=== PATIENT | male | born 1995 | race Caucasian/White ===

== ENCOUNTER → 2021-03-16 01:14 | Outpatient (CLI) | payer OTHER, SELFPAY ==
[2021-03-16 18:55] LABS: SARS-CoV-2 RNA PCR Negative
== END ==
PROVIDERS: PCP Internal Medicine; Visit Provider Internal Medicine Gastroenterology
DX: Z01.812 Encounter for preprocedural laboratory examination (principal); Z20.822 Contact with and (suspected) exposure to COVID-19
CPT/HCPCS: C9803; U0003; U0005

== ENCOUNTER 2021-03-19 05:32 | Day surgery (SDC) | payer OTHER, SELFPAY ==
[2021-03-08 15:55] VITALS: BMI 38.5
[2021-03-19 07:23] VITALS: BP 144/90; PULSE 72; RESP 18; TEMP 36.2; O2SAT 96; BMI 38.8
[2021-03-19] MEDS: LACTATED RINGERS 1,000 ML 150 ML IV CONT (07:28)
--- NOTE | 2021-03-19 08:16 | WPDANESEPPF ---
Anes - Initial Pre Proc Eval Procedure: Operation Date: 03/19/21 08:30 Proposed Procedures p Colonoscopy - Luc Lang MD Date/Time: 03/19/21 08:16 Surgeon: Luc Lang MD Pre Op Diagnosis: blood in stool, diarrhea Patient Data Age: 25 Gender: M Height: 6 ft Weight: 129.9 kg Last Vital Signs Temp 97.2 F L 03/19/21 07:23 Pulse 72 03/19/21 07:23 Resp 18 03/19/21 07:23 BP 144/90 H 03/19/21 07:23 Pulse Ox 96 03/19/21 07:23 Allergies Allergy/AdvReac Type Severity Reaction Status Date / Time poison magy extract Allergy Unknown Hives Verified 03/19/21 07:19 hydrochlorothiazide AdvReac Severe Drowsy Verified 03/19/21 07:19 triamterene AdvReac Severe Drowsy Verified 03/19/21 07:19 Home Medications Medication Instructions Recorded Confirmed Type ergocalciferol (vitamin D2) 1,250 1,250 mcg PO WEEKLY 90 Days #13 cap 11/12/20 03/08/21 Rx mcg (50,000 unit) capsule febuxostat 80 mg tablet 80 mg PO DAILY 90 Days #90 tablet 11/12/20 03/08/21 Rx lamotrigine 150 mg tablet 300 mg PO QPM #180 tablet 01/11/21 03/08/21 Rx indomethacin 75 mg PO BID PRN 03/08/21 03/08/21 History Patient hx anesthesia problems: none Family hx anesthesia problems: none PMFSH Past Medical History Medical History (Updated 01/13/21 @ 14:34 by Luc Lang MD) Blood in stool Chronic diarrhea Rectal pressure Severe obesity (BMI 35.0-39.9) with comorbidity Family History Family History Other Cerebrovascular accident Diabetes mellitus Family history of cardiovascular disease Family history of chronic obstructive pulmonary disease Hypertension Social History Social History Smoking status: Never smoker Alcohol intake: never Living arrangements: with friend(s) Gender identity (if verbalized by the patient): Male Spiritual care concerns: No Anes - Eval Final PreProcedure Day of Procedure 03/19/21 08:16 Patient weight: obese Heart: regular rate and rhythm Lungs: clear to auscultation Airway: Mallampati scale class III Neurological: alert and oriented Last oral intake: >/= 8 hours ASA classification: III Emergent: no Anesthetic plan: proceed Anesthesia type and monitoring: general GIVS and standard monitoring Informed Consent: The patient's anesthetic plan and its attendant risks and benefits were discussed with the patient/family/POA. Questions were solicited and answers provided to the satisfaction of the patient/family/POA.
--- NOTE | 2021-03-19 08:22 | PM.HPGS ---
History of Present Illness History of Present Illness Consent: Risks, benefits, and alternatives have been discussed and questions answered. Patient agrees to proceed with procedure. Chief complaint: blood in stool, diarrhea Narrative: Davi Blankenship is a 25 year old male here for colonoscopy, intermittent blood in stools and loose stools, never had colonoscopy Review of Systems Constitutional: Constitutional: Denies headache(s) and Denies weakness Eyes: Eyes: Denies blurry vision ENT: Reports Normal hearing present, Denies headache(s) and Denies neck pain Cardiovascular: Cardiovascular: Denies chest pain and Denies dyspnea Respiratory: Respiratory: Denies dyspnea Gastrointestinal: Gastrointestinal: Reports no additional gastrointestinal complaints Genitourinary: Genitourinary: Denies dysuria Musculoskeletal: Musculoskeletal: Denies neck pain Integumentary/Breasts: Skin/Breast: Denies dry skin Neurologic: Reports Normal hearing present, Denies headache(s) and Denies weakness Psychiatric: Psychiatric: Denies anxiety Endocrine: Endocrine: Denies change in body appearance Hematologic/Lymphatic: Hematologic/Lymphatic: Denies easy bleeding Allergic/Immunologic: Allergic/Immunologic: Denies urticaria PMF Past Medical History Medical History (Updated 01/13/21 @ 14:34 by Luc Lang MD) Blood in stool Chronic diarrhea Rectal pressure Severe obesity (BMI 35.0-39.9) with comorbidity Family History Family History Other Cerebrovascular accident Diabetes mellitus Family history of cardiovascular disease Family history of chronic obstructive pulmonary disease Hypertension Social History Social History Smoking status: Never smoker Alcohol intake: never Living arrangements: with friend(s) Gender identity (if verbalized by the patient): Male Spiritual care concerns: No Meds Home Medications and Allergies Home Medications Medication Instructions Recorded Confirmed Type ergocalciferol (vitamin D2) 1,250 1,250 mcg PO WEEKLY 90 Days #13 cap 11/12/20 03/19/21 Rx mcg (50,000 unit) capsule febuxostat 80 mg tablet 80 mg PO DAILY 90 Days #90 tablet 11/12/20 03/19/21 Rx lamotrigine 150 mg tablet 300 mg PO QPM #180 tablet 03/08/21 05/14/21 Rx indomethacin 75 mg PO BID PRN 03/08/21 03/19/21 History Allergies Allergy/AdvReac Type Severity Reaction Status Date / Time poison magy extract Allergy Unknown Hives Verified 03/19/21 07:19 hydrochlorothiazide AdvReac Severe Drowsy Verified 03/19/21 07:19 triamterene AdvReac Severe Drowsy Verified 03/19/21 07:19 Vital Signs Vital Signs - 24 hr 03/19/21 07:23 Temperature 97.2 F L Pulse Rate 72 Respiratory Rate 18 Blood Pressure 144/90 H Pulse Oximetry 96 Exam Const: General: comfortable and no acute distress HENMT: General nose exam: Normal nares present Eyes: General: appearance normal, both eyes and all related structures Neck: Neck: no JVD Resp: Auscultation: clear to auscultation bilaterally Cardio: Rate: regular rate Rhythm: regular rhythm GI: Inspection: non-distended GI Palp: Yes Soft to palpation Skin: General skin exam: normal color Neuro: General: gait normal Speech: normal speech Extrem: General: normal to inspection Psych: Mental Status: mental status grossly normal Assessment and Plan Assessment and plan (1) Blood in stool: Code(s): K92.1 - Melena Status: Acute Assessment and Plan: colonoscopy (2) Rectal pressure: Code(s): R19.8 - Other specified symptoms and signs involving the digestive system and abdomen Status: Acute (3) Chronic diarrhea: Code(s): K52.9 - Noninfective gastroenteritis and colitis, unspecified Status: Acute
[2021-03-19 08:40] VITALS: BP 111/59; PULSE 75; RESP 25; O2SAT 97
[2021-03-19 08:50] VITALS: BP 103/66; PULSE 75; RESP 17; O2SAT 95
[2021-03-19 09:00] VITALS: BP 112/62; PULSE 75; RESP 17; O2SAT 98
== END 2021-03-19 09:29 | disposition home or self-care (01) ==
PROVIDERS: PCP Internal Medicine; Visit Provider Internal Medicine Gastroenterology
PROC: 0DJD8ZZ Inspection of Lower Intestinal Tract, Via Natural or Artificial Opening Endoscopic (ICD-10-PCS; CPT 45378; principal; 2021-03-19 08:30)
DX: K92.1 Melena (principal); R19.8 Other specified symptoms and signs involving the digestive system and abdomen; K64.8 Other hemorrhoids; E66.9 Obesity, unspecified; Z68.38 Body mass index [BMI] 38.0-38.9, adult
CPT/HCPCS: 45380; 88305; C9803; J7120; U0003; U0005

== ENCOUNTER 2022-07-12 15:33 | Emergency (ER) | payer OTHER, SELFPAY ==
[2022-07-12 15:41] VITALS: BP 143/87; PULSE 95; RESP 20; TEMP 36.2; O2SAT 98
--- NOTE | 2022-07-12 15:49 | ED.SKABFB ---
HPI - Skin/Abscess/Foreign Bdy General Chief complaint: Skin/Abscess/Foreign Body Stated complaint: Rash Time Seen by Provider: 07/12/22 15:49 Source: patient, RN notes reviewed and old records reviewed Mode of arrival: ambulatory Limitations: no limitations History of Present Illness HPI narrative: 26-year-old male presents to the [facility] with a rash to the left lower abdomen and upper thigh for 1 week. Patient denies any new creams ointments lotions or detergents. Reports it is being very itchy. States the area on the back of his legs have cleared up but the abdomen keeps getting worse. Denies fevers. No treatment prior to arrival Related Data Allergies Allergy/AdvReac Type Severity Reaction Status Date / Time poison magy extract Allergy Unknown Hives Verified 07/12/22 15:45 hydrochlorothiazide AdvReac Severe Drowsy Verified 07/12/22 15:45 triamterene AdvReac Severe Drowsy Verified 07/12/22 15:45 quetiapine [From Seroquel] AdvReac Mild sedation Verified 07/12/22 15:45 Review of Systems Review of Systems: All systems reviewed & are unremarkable except as noted in HPI and below Constitutional: Constitutional: Reports no additional constitutional complaints, Denies chills and Denies fever(s) Eyes: Eyes: Reports no additional eye complaints ENT: Reports system reviewed and no additional complaints, except as documented Cardiovascular: Cardiovascular: Reports no additional cardiovascular complaints Respiratory: Respiratory: Reports no additional respiratory complaints Gastrointestinal: Gastrointestinal: Reports no additional gastrointestinal complaints Musculoskeletal: Musculoskeletal: Reports no additional musculoskeletal complaints Integumentary/Breasts: Skin/Breast: Reports as per HPI and Reports rash Neurologic: Reports system reviewed and no additional complaints, except as documented Psychiatric: Psychiatric: Reports no additional psychiatric complaints Allergic/Immunologic: Allergic/Immunologic: Reports no additional allergic/immunologic complaints PMFSH Past Medical History Medical History Blood in stool Chronic diarrhea Rectal pressure Severe obesity (BMI 35.0-39.9) with comorbidity Family History Family History Other Cerebrovascular accident Diabetes mellitus Family history of cardiovascular disease Family history of chronic obstructive pulmonary disease Hypertension Social History Social History (Reviewed 07/12/22 @ 19:55 by CHARLOTTE Hope Smoking status: Never smoker Alcohol intake: never Gender identity (if verbalized by the patient): Male Spiritual care concerns: No Comments At the time of my signature, I reviewed and agree with the nursing past medical, surgical, social, and family history. There is no relevant family history pertinent to the patient complaint. Exam Const: General: healthy appearing, no acute distress and alert Nutritional Appearance: well nourished Orientation/consciousness: patient oriented x3 Limitations: no limitations HENMT: Head: normal to inspection Ears: external ears normal General nose exam: Normal external nose present Face and sinus: normal facial exam Mouth: Yes Normal oral and palatal mucosa present, Yes lip normal and Yes moist mucous membranes Eyes: General: appearance normal, both eyes and all related structures Pupils: Equal, round and reactive pupils present Neck: Neck: normal visual inspection, no lymphadenopathy and no meningeal signs Chest: Chest palpation & inspection: normal inspection of the chest Resp: Effort & Inspection: normal respiratory effort and no use of accessory muscles Auscultation: clear to auscultation bilaterally, no crackles, no rales, no rhonchi and no wheezes Cardio: Rate: regular rate Rhythm: regular rhythm GI: GI Palp: Yes Soft to palpation and No Tenderness to palpation present (GI
== END 2022-07-12 16:03 | disposition home or self-care (01) ==
PROVIDERS: Emergency Provider Nurse Practitioner
DX: L25.9 Unspecified contact dermatitis, unspecified cause (principal); E66.01 Morbid (severe) obesity due to excess calories; Z68.41 Body mass index [BMI] 40.0-44.9, adult
CPT/HCPCS: 99213; G0463

== ENCOUNTER 2024-11-18 13:27 | Emergency (ER) | payer OTHER, SELFPAY ==
[2024-11-18 14:01] VITALS: BP 144/78; PULSE 88; RESP 18; TEMP 36.6; O2SAT 98
--- NOTE | 2024-11-18 14:21 | ED.EAR ---
HPI - Ear Problem General Chief complaint: Ear Stated complaint: ear clogging Time Seen by Provider: 11/18/24 14:21 Source: patient, RN notes reviewed and old records reviewed Mode of arrival: ambulatory Limitations: no limitations History of Present Illness HPI Narrative: Patient presents with one-week history of bilateral ear discomfort and decreased hearing. He reports that prior to the symptoms developing he did have some nasal drainage. States that this has basically resolved, but most bothersome to him is that his hearing seems decreased, particularly in the left side. He denies any fever, chills, sweats. Denies any drainage from the ears. Denies any injury or trauma. He voices no other concerns or complaints today. He has been taking [id number] medications for his symptoms with no relief. Related Data Allergies Allergy/AdvReac Type Severity Reaction Status Date / Time poison magy extract Allergy Unknown Hives Verified 11/18/24 14:24 hydrochlorothiazide AdvReac Severe Drowsy Verified 11/18/24 14:24 triamterene AdvReac Severe Drowsy Verified 11/18/24 14:24 quetiapine (From Seroquel) AdvReac Mild sedation Verified 11/18/24 14:24 Review of Systems Review of Systems: All systems reviewed & are unremarkable except as noted in HPI and below Constitutional: Constitutional: Reports no additional constitutional complaints ENT: Reports system reviewed and no additional complaints, except as documented, Reports otalgia, Reports hearing loss, Reports nasal congestion and Reports nasal discharge Cardiovascular: Cardiovascular: Reports no additional cardiovascular complaints Respiratory: Respiratory: Reports no additional respiratory complaints Gastrointestinal: Gastrointestinal: Reports no additional gastrointestinal complaints [facility] Past Medical History Medical History Blood in stool Chronic diarrhea Rectal pressure Family History Family History Other Cerebrovascular accident Diabetes mellitus Family history of cardiovascular disease Family history of chronic obstructive pulmonary disease Hypertension Social History Social History Smoking status: Never smoker Alcohol intake: current Alcohol use details: 4 times a month Substance use: never Substance use type: does not use Do You Feel Safe in your Home?: Yes Lack of Transportation: No Lack of Food: Never True Current Housing: I Have Housing Concerned About Future Housing: No Difficulty Paying Gas/Electric Bills: No Difficulty Paying for Meds: No Currently Unemployed: No Education: Bachelor's Degree Difficulty w/ Childcare or Family Care: No Living arrangements: with friend(s) Occupation/Education: occupation Gender identity (if verbalized by the patient): Male Spiritual care concerns: No Comments At the time of my signature, I reviewed and agree with the nursing past medical, surgical, social, and family history. There is no relevant family history pertinent to the patient complaint. Exam Const: General: cooperative, no acute distress, alert and awake Orientation/consciousness: oriented to person, oriented to place and oriented to time HENMT: Head: normal to inspection Ears: TM abnormal dull on the right, erythematous on the left, with fluid behind the TM bilateral and with loss of landmarks bilateral Resp: Effort & Inspection: normal respiratory effort and able to speak in complete sentences Auscultation: clear to auscultation bilaterally, no crackles, no rales, no rhonchi and no wheezes Cardio: Palpation: normal PMI Rate: regular rate Rhythm: regular rhythm Heart sounds: S1 normal heart sound present and S2 normal heart sound present Neuro: General: oriented to person, oriented to place and oriented to time Cranial nerves: Yes CN's II-XII intact bilaterally Psych: Appearance: grossly normal Thought process: Normal thought process present Insight: Good insight present (Psych) Judgement: Good judgement present (Psych) Course Course Level of Care: Express Care Visit Vital Signs Vital signs: Vital Signs Temperature 97.9 F 11/18/24 14:01 Pulse Rate 88 11/18/24 14:01 Respiratory Rate 18 11/18/24 14:01 Blood Pressure 144/78 H 11/18/24 14:01 Pulse Oximetry 98 11/18/24 14:01 Oxygen Delivery Room Air 11/18/24 14:01 Temperature 97.9 F 11/18/24 14:01 Pulse Rate 88 11/18/24 14:01 Respiratory Rate 18 11/18/24 14:01 Blood Pressure 144/78 H 11/18/24 14:01 Pulse Oximetry 98 11/18/24 14:01 Oxygen Delivery Room Air 11/18/24 14:01 Reviewed Medical Decision Making MDM Narrative Medical decision making narrative: History and exam consistent with otitis media. Start p.o. antibiotic therapy, add prednisone burst to hasten resolution of symptoms. Patient nontoxic appearing and stable for discharge home Discharge instructions reviewed with patient, as well as provided in writing per nursing staff. The instructions also include specific and strict return/GO TO THE ER as well as f/u information. All questions have been answered, and the patient deny any further questions with discharge and discharge plan. Some parts of this dictation were generated by voice recognition software and may contain typographical and/or grammatical inaccuracies. Medical Records Medical records reviewed: Yes I reviewed the external patient's medical records. Vital Signs Vital Signs: Vital Signs Temperature 97.9 F 11/18/24 14:01 Pulse Rate 88 11/18/24 14:01 Respiratory Rate 18 11/18/24 14:01 Blood Pressure 144/78 H 11/18/24 14:01 Pulse Oximetry 98 11/18/24 14:01 Oxygen Delivery Room Air 11/18/24 14:01 Temperature 97.9 F 11/18/24 14:01 Pulse Rate 88 11/18/24 14:01 Respiratory Rate 18 11/18/24 14:01 Blood Pressure 144/78 H 11/18/24 14:01 Pulse Oximetry 98 11/18/24 14:01 Oxygen Delivery Room Air 11/18/24 14:01 reviewed Lab Data Lab results reviewed: Yes I reviewed the patient's lab results. Lab results narrative: reviewed Discharge Plan Discharge Clinical Impression: Otitis media Qualifiers: Otitis media type: suppurative Chronicity: acute Laterality: left Recurrence: not specified as recurrent Spontaneous tympanic membrane rupture: without spontaneous rupture Qualified Code(s): H66.002 - Acute suppurative otitis media without spontaneous rupture of ear drum, left ear Patient Disposition: Home, Self-Care Condition: Stable Instructions: Antibiotic Form, Ear Infection (ED) Additional Instructions: Take medications as prescribed. Follow-up with primary care provider. Emergency department for any new or worse symptoms Patient Language: Colombian Prescriptions: New amoxicillin-pot clavulanate 875-125 mg tablet 1 tablet PO Q12H Qty: 20 0RF prednisone 50 mg tablet 50 mg PO DAILY Qty: 5 0RF No Action colchicine 0.6 mg tablet 0.3 mg PO BID PRN (Reason: gout) Qty: 30 0RF febuxostat 80 mg tablet 80 mg PO DAILY 90 Days Qty: 90 1RF Rx Instructions: Take with 40mg to = 120mg indomethacin 75 mg capsule, extended release 75 mg PO BID PRN (Reason: Pain) Qty: 60 0RF Rx Instructions: administer with a meal/food; swallow whole; do not open, crush, dissolve , or chew lamotrigine 150 mg tablet See Rx Instructions .ROUTE .COMPLEX Qty: 180 0RF Dose Instruction: TAKE 2 TABLETS BY MOUTH EVERY EVENING Rx Instructions: TAKE 2 TABLETS BY MOUTH EVERY EVENING Follow-up/Referrals: UNKNOWN,DOCTOR [Primary Care Provider] - Stand Alone Forms: Work/School Release IP Time of Disposition: 14:32
== END 2024-11-18 14:36 | disposition home or self-care (01) ==
PROVIDERS: Emergency Provider Nurse Practitioner Family
DX: H66.002 Acute suppurative otitis media without spontaneous rupture of ear drum, left ear (principal)
CPT/HCPCS: 99213; G0463

== ENCOUNTER 2024-12-06 16:36 | Emergency (ER) | payer OTHER, SELFPAY ==
--- NOTE | 2024-12-06 16:41 | ED.EAR ---
HPI - Ear Problem General Chief complaint: Ear Stated complaint: ear infection Time Seen by Provider: 12/06/24 16:41 Source: patient, RN notes reviewed and old records reviewed Mode of arrival: ambulatory Limitations: no limitations History of Present Illness HPI Narrative: 29-year-old male presents to the [facility] with continued ear issues. Patient was seen on 18 November, diagnosed with an otitis media, prescribe steroids as well as an antibiotic. States that he is here for a follow-up appointment. Continues to have some ear discomfort. Treatment prior to arrival: other (Antibiotics, steroid) Related Data Allergies Allergy/AdvReac Type Severity Reaction Status Date / Time poison magy extract Allergy Unknown Hives Verified 12/06/24 16:46 hydrochlorothiazide AdvReac Severe Drowsy Verified 12/06/24 16:46 triamterene AdvReac Severe Drowsy Verified 12/06/24 16:46 quetiapine (From Seroquel) AdvReac Mild sedation Verified 12/06/24 16:46 Review of Systems Review of Systems: All systems reviewed & are unremarkable except as noted in HPI and below Constitutional: Constitutional: Reports no additional constitutional complaints ENT: Reports as per HPI Cardiovascular: Cardiovascular: Reports no additional cardiovascular complaints, Denies chest pain and Denies dyspnea Respiratory: Respiratory: Reports no additional respiratory complaints, Denies chest congestion, Denies cough and Denies dyspnea Musculoskeletal: Musculoskeletal: Reports no additional musculoskeletal complaints Integumentary/Breasts: Skin/Breast: Reports system reviewed and no additional complaints, except as docu PMFSH Past Medical History Medical History Blood in stool Rectal pressure Chronic diarrhea Family History Family History Other Cerebrovascular accident Diabetes mellitus Family history of cardiovascular disease Family history of chronic obstructive pulmonary disease Hypertension Social History Social History Smoking status: Never smoker Alcohol intake: current Alcohol use details: 4 times a month Substance use: never Substance use type: does not use Do You Feel Safe in your Home?: Yes Lack of Transportation: No Lack of Food: Never True Current Housing: I Have Housing Concerned About Future Housing: No Difficulty Paying Gas/Electric Bills: No Difficulty Paying for Meds: No Currently Unemployed: No Education: Bachelor's Degree Difficulty w/ Childcare or Family Care: No Living arrangements: with friend(s) Occupation/Education: occupation Gender identity (if verbalized by the patient): Male Spiritual care concerns: No Comments At the time of my signature, I reviewed and agree with the nursing past medical, surgical, social, and family history. There is no relevant family history pertinent to the patient complaint. Exam Const: General: cooperative, healthy appearing, comfortable, no acute distress, well developed, alert and well nourished Nutritional Appearance: well nourished Orientation/consciousness: patient oriented x3 Limitations: no limitations HENMT: Head: normal to inspection Ears: hearing grossly normal bilaterally, external ears normal, EAC's normal, mastoids normal, no periauricular adenopathy and TM abnormal with fluid behind the TM bilateral (Left greater than right); not erythematous Eyes: General: appearance normal, both eyes and all related structures Alignment and Position: alignment normal Neck: Neck: normal visual inspection, full ROM, no lymphadenopathy and no meningeal signs Chest: Chest palpation & inspection: normal inspection of the chest Resp: Effort & Inspection: normal respiratory effort and able to speak in complete sentences Auscultation: clear to auscultation bilaterally, no crackles, no rales, no rhonchi and no wheezes Cardio: Rate: regular rate Skin: General skin exam: normal color and no rashes or lesions noted Neuro: General: patient oriented x3, gait normal, moves all extremities and no meningeal signs Cognition (Neuro): normal cognition Speech: normal speech Gait exam (Neuro): Normal gait present Extrem: General: normal to inspection, full ROM, capillary refill normal and normal gait Psych: Appearance: grossly normal and well kempt Mental Status: mental status grossly normal Speech and movement: Normal speech and movement present and Clear speech present Affect: normal affect Attitude: cooperative Course Course Level of Care: Express Care Visit Vital Signs Vital signs: Vital Signs Temperature 97.0 F L 12/06/24 16:46 Pulse Rate 97 12/06/24 16:46 Respiratory Rate 20 12/06/24 16:46 Blood Pressure 157/81 H 12/06/24 16:46 Pulse Oximetry 98 12/06/24 16:46 Oxygen Delivery Room Air 12/06/24 16:46 Temperature 97.0 F L 12/06/24 16:46 Pulse Rate 97 12/06/24 16:46 Respiratory Rate 20 12/06/24 16:46 Blood Pressure 157/81 H 12/06/24 16:46 Pulse Oximetry 98 12/06/24 16:46 Oxygen Delivery Room Air 12/06/24 16:46 Reviewed Medical Decision Making MDM Narrative Medical decision making narrative: Patient sitting comfortably in exam room. Nontoxic, vitals stable. Patient in no acute distress Patient presents for continued ear discomfort, was treated for otitis media Patient now with continued ear discomfort, clear fluid noted behind both TMs without erythema. Discussed [id number] treatments, Patient appropriate for outpatient treatment with close follow-up, and stressed the importance that he needs a follow-up with ENT and primary care provider for further evaluation of blood pressure and continued ear discomfort Discharge instructions reviewed with patient, as well as provided in writing per nursing staff. The instructions also include specific and strict return/GO TO THE ER as well as f/u information. All questions have been answered, and the patient deny any further questions with discharge and discharge plan. Some parts of this dictation were generated by voice recognition software and may contain typographical and/or grammatical inaccuracies. Differential Diagnosis Differential Diagnosis: Serous otitis, otitis externa, otitis media Medical Records Medical records reviewed: Yes I reviewed the external patient's medical records. Vital Signs Vital Signs: Vital Signs Temperature 97.0 F L 12/06/24 16:46 Pulse Rate 97 12/06/24 16:46 Respiratory Rate 20 12/06/24 16:46 Blood Pressure 157/81 H 12/06/24 16:46 Pulse Oximetry 98 12/06/24 16:46 Oxygen Delivery Room Air 12/06/24 16:46 Temperature 97.0 F L 12/06/24 16:46 Pulse Rate 97 12/06/24 16:46 Respiratory Rate 20 12/06/24 16:46 Blood Pressure 157/81 H 12/06/24 16:46 Pulse Oximetry 98 12/06/24 16:46 Oxygen Delivery Room Air 12/06/24 16:46 Reviewed Lab Data Lab results reviewed: Yes I reviewed the patient's lab results. Labs: Reviewed Critical Care Time Critical Care Time Critical Care Time: No Discharge Plan Discharge Clinical Impression: Acute serous otitis media, bilateral Qualifiers: Recurrence: not specified as recurrent Qualified Code(s): H65.03 - Acute serous otitis media, bilateral Patient Disposition: Home, Self-Care Condition: Stable Instructions: Antibiotic Form, Fluid In The Ear (Serous Otitis Media) (ED) Additional Instructions: We recommend that you take allergy medications such as Claritin or Zyrtec. Use Flonase twice a day for 7 days then once daily Follow-up with your primary care provider It is recommended you follow-up with your primary care provider within the next 2 weeks to have your blood pressure rechecked. Today your blood pressure was 157/81. For new or worsening symptoms go directly to the emergency Patient Language: Pashto Prescriptions: No Action colchicine 0.6 mg tablet 0.3 mg PO BID PRN (Reason: gout) Qty: 30 0RF febuxostat 80 mg tablet 80 mg PO DAILY 90 Days Qty: 90 1RF Rx Instructions: Take with 40mg to = 120mg indomethacin 75 mg capsule, extended release 75 mg PO BID PRN (Reason: Pain) Qty: 60 0RF Rx Instructions: administer with a meal/food; swallow whole; do not open, crush, dissolve , or chew lamotrigine 150 mg tablet See Rx Instructions .ROUTE .COMPLEX Qty: 180 0RF Dose Instruction: TAKE 2 TABLETS BY MOUTH EVERY EVENING Rx Instructions: TAKE 2 TABLETS BY MOUTH EVERY EVENING Follow-up/Referrals: Jarad Snider M.D. [Physician] - Mode Oh MD [Physician] - Nazia Arndt APN-C [Advanced Practice Nurse] - UNKNOWN,DOCTOR [Primary Care Provider] - Stand Alone Forms: Work/School Release IP Time of Disposition: 16:53
[2024-12-06 16:46] VITALS: BP 157/81; PULSE 97; RESP 20; TEMP 36.1; O2SAT 98
== END 2024-12-06 16:57 | disposition home or self-care (01) ==
PROVIDERS: Emergency Provider Nurse Practitioner
DX: H65.03 Acute serous otitis media, bilateral (principal)
CPT/HCPCS: 99211; G0463